=== PATIENT | female | born 2000 | race African-American/Black ===

== ENCOUNTER 2021-08-20 12:01 | Emergency (ER) | payer OTHER ==
[~2021-08-20] VITALS: Ht 154.9 cm; Wt 83.0 kg
[2021-08-20] MEDS ORDERED: KETOROLAC 60MG/2ML VIAL IM ONE (12:45)
[2021-08-20 12:50] VITALS: BP 139/96
[2021-08-20] MEDS ORDERED: IBUP-2029 MT (14:10)
[2021-08-20] MEDS ORDERED: CYCL10TA7 MT (14:10)
== END 2021-08-20 14:26 | disposition home or self-care (01) ==
LOC: ER 12:01
DX: S09.8XXA Other specified injuries of head, initial encounter (principal); S80.01XA Contusion of right knee, initial encounter; V43.52XA Car driver injured in collision with other type car in traffic accident, initial encounter; Y93.89 Activity, other specified; Y92.411 Interstate highway as the place of occurrence of the external cause
CPT/HCPCS: 70450; 73562; 96372; 99284; J1885